=== PATIENT | male | born 1975 | race Caucasian/White ===

== ENCOUNTER 2017-07-11 21:52 | Inpatient (IN) | payer OTHER ==
[2017-07-11 22:50] VITALS: BMI 37.8
--- NOTE | 2017-07-11 22:58 | HP ---
CIWA Score - CIWA Score Nausea/Vomitin Muscle Tremors: 4-Moderate,w/Arms Extend Anxiety: 4-Mod. Anxious/Guarded Agitation: 4-Moderately Restless Paroxysmal Sweats: 3 Orientation: 3-Disoriented Date>2 days Tacttile Disturbances: 3-Moderate Itch/Numb/Burn Auditory Disturbances: 0-None Visual Disturbances: 0-None Headache: 0-None Present CIWA-Ar Total Score: 24 Admission ROS [facility] - HPI Chief Complaint: C/O WITHDRAWAL SX'S. SEEKING DETOX TXMENT Allergies/Adverse Reactions: Allergies Allergy/AdvReac Type Severity Reaction Status Date / Time No Known Allergies Allergy Verified 07/11/17 22:53 History of Present Illness: 42 Y.O. MALE WITH A LONG H/O ALCOHOLISM ADMITTED FOR DETOX TXMENT. CLIENT STATES WAS REFERRED BY [facility] AFTER PRESENTING IN THERE ER FOR INTOXICATION. DENIES RECENT DETOX SERVICES OR SIGNIFICANT CLEAN/ SOBRIETY TIME. Exam Limitations: No Limitations - Ebola screening Have you traveled outside of the country in the last 21 days: No (N) Have you had contact with anyone from an Ebola affected area: No Have you been sick,other than usual withdrawal symptoms: No Do you have a fever: No - Review of Systems Constitutional: Chills, Night Sweats, Changes in sleep EENT: reports: Dental Problems (MISSING TOOTH) Respiratory: reports: No Symptoms reported Cardiac: reports: No Symptoms Reported GI: reports: Diarrhea, Abdominal cramping : reports: No Symptoms Reported Musculoskeletal: reports: Back Pain, Joint Pain, Neck Pain Integumentary: reports: No Symptoms Reported Neuro: reports: Seizure (R/T ETOH WITHDRAWAL) Endocrine: reports: No Symptoms Reported Hematology: reports: No Symptoms Reported Psychiatric: reports: Anxious, Depressed Other Systems: Reviewed and Negative Patient History - Patient Medical History Hx Anemia: No Hx Asthma: No Hx Chronic Obstructive Pulmonary Disease (COPD): No Hx Cancer: No Hx Cardiac Disorders: No Hx Congestive Heart Failure: No Hx Hypertension: Yes (NO MEDS) Hx Hypercholesterolemia: No Hx Pacemaker: No HX Cerebrovascular Accident: No Hx Seizures: Yes (R/T ETOH WITHDRAWAL LAST 5 YEARS AGO) Hx Dementia: No Hx Diabetes: No Hx Gastrointestinal Disorders: No Hx Liver Disease: No Hx Genitourinary Disorders: No Hx Sexually Transmitted Disorders: No Hx Renal Disease (ESRD): No Hx Thyroid Disease: Yes (ACUTE HYPOTHYROIDISM NON COMPLAINT WITH MEDS) Hx Human Immunodeficiency Virus (HIV): No Hx Hepatitis C: No Hx Depression: Yes (NON COMPLIANT W/ MEDS) Hx Suicide Attempt: Yes (LAST 11/2015 PILL OVERDOSE PRESENTLY DENIES) Hx Bipolar Disorder: Yes (NON COMPLAINT W/ MEDS) Hx Schizophrenia: No Other Medical History: PSORIASIS - Patient Surgical History Past Surgical History: No - PPD History Previous Implant?: Yes Documented Results: Negative w/o proof Implanted On Prior [facility] Admission?: No PPD to be Administered?: Yes - Smoking Cessation Smoking history: Former smoker Have you smoked in the past 12 months: No Hx Chewing Tobacco Use: No Initiated information on smoking cessation: No - Substance & Tx. History Hx Alcohol Use: Yes Hx Substance Use: No Substance Use Type: Alcohol Hx Substance Use Treatment: Yes ([facility] - Substances Abused BEER Route: Oral Frequency: Daily Amount used: 24 12 0Z CANS/ 1 GALLON WINE Age of first use: 14 Date of Last Use: 07/11/17 Family Disease History - Family Disease History Family Disease History: Heart Disease: Father ( HTN), CA: Mother ( BREAST CA) Admission Physical Exam [facility] - Vital Signs Vital Signs: Vital Signs - 24 hr 07/11/17 22:49 Temperature 97.6 F Pulse Rate 61 Respiratory 20 Rate Blood Pressure 141/99 - Physical General Appearance: Yes: Appropriately Dressed, Tremorous HEENTM: Yes: EOMI, Normocephalic, Normal Voice, LORENA, Pharynx Normal, Other ( MISSING TEETH) Respiratory: Yes: Chest Non-Tender, Lungs Clear, Normal Breath Sounds, No Respiratory Distress, No Accessory Muscle Use Neck: Yes: No masses,lesions,Nodules, Supple, Trachea in good position Breast: Yes: Breast Exam Deferred Cardiology: Yes: Regular Rhythm, Regular Rate, S1, S2 Abdominal: Yes: Non Tender, Soft, Increased Bowel Sounds, Other (PSORIATIC RASH) Genitourinary: Yes: Within Normal Limits Back: Yes: Normal Inspection Musculoskeletal: Yes: full range of Motion, Gait Steady Extremities: Yes: Normal Range of Motion, Non-Tender, Tremors, Other (RASH TO R FOREARM FROM TAPE) Neurological: Yes: budget and policy analyst II-XII NML intact, Fully Oriented, Alert, Motor Strength 5/5 Integumentary: Yes: Dry, Warm, Rash (PSORIASIS) Lymphatic: Yes: Within Normal Limits - Diagnostic (1) Alcohol dependence with uncomplicated withdrawal Current Visit: Yes Status: Chronic (2) Psoriasis Current Visit: Yes Status: Chronic (3) Hypothyroidism Current Visit: Yes Status: Chronic (4) 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
[2017-07-11] MEDS ORDERED: NICOTINE POLACRILEX 2 MG GUM BUC PRN (23:12)
[2017-07-11] MEDS ORDERED: MAGNESIUM CITRATE 300 ML BOTTLE PO PRN (23:12)
[2017-07-11] MEDS ORDERED: IBUPROFEN 400 MG TABLET (FP) PO PRN (23:12)
[2017-07-11] MEDS ORDERED: ACETAMINOPHEN 325 MG TABLET (FP) PO PRN (23:12)
[2017-07-11] MEDS ORDERED: diphenhydrAMINE HCL 50 MG CAPSULE PO PRN (23:12)
[2017-07-11] MEDS ORDERED: guaiFENesin/D-METHORPHAN HB 10 ML UNIT-DOSE CUPS PO PRN (23:12)
[2017-07-11] MEDS ORDERED: MAG HYDROX/AL HYDROX/SIMETH 30 ML UNIT-DOSE CUP PO PRN (23:12)
[2017-07-11] MEDS ORDERED: chlordiazePOXIDE HCL 25 MG CAPSULE PO PRN (23:12)
[2017-07-11] MEDS ORDERED: hydrOXYzine PAMOATE 50 MG CAPSULE (FP) PO PRN (23:12)
[2017-07-11] MEDS ORDERED: MAGNESIUM HYDROX 2400MG/30ML ORAL SUSPENSION 30 ML CUP PO PRN (23:12)
[2017-07-11] MEDS ORDERED: LOPERAMIDE HCL 2 MG CAPSULE PO PRN (23:12)
[2017-07-11] MEDS ORDERED: P-EPHED 60MG/TRIPROLIDI 2.5MG TABLET PO PRN (23:12)
[2017-07-11] MEDS ORDERED: MENTHOL/PHENOL 1 EACH UD MM PRN (23:12)
[2017-07-12] MEDS: chlordiazePOXIDE HCL 25 MG CAPSULE PO SCH ×4 (00:17→17:35)
[2017-07-12] MEDS ORDERED: PRENATAL VITAMINS W/ FOLIC ACID TABLET (FP) PO SCH (10:00)
[2017-07-12 10:49] LABS: MCH 30.4 pg (25.7-33.7); MCHC 34.3 g/dl (32.0-35.9); MEAN CELL VOLUME 88.6 fl (80-96); MEAN PLT VOLUME 9.3 fl (7.5-11.1); PLATELET COUNT 127 K/MM3 (134-434); RDW 13.6 % (11.9-15.9); WHITE BLOOD COUNT 7.9 K/mm3 (4.0-10.0)
[2017-07-12 11:00] LABS: ALBUMIN 3.5 g/dl (3.4-5.0); ALK PHOS 67 U/L (45-117); ANION GAP 9 (8-16); BILIRUBIN,TOTAL 0.6 mg/dL (0.2-1.0); CALCIUM 8.5 mg/dL (8.5-10.1); CO2 28 mmol/L (21-32); GLUCOSE,RANDOM 93 mg/dL (74-106); SGOT/AST 14 U/L (15-37); SGPT/ALT 38 U/L (12-78); TOT PROT 6.2 g/dl (6.4-8.2)
--- NOTE | 2017-07-12 12:20 | PN ---
S CIWA - CIWA Score Nausea/Vomitin Muscle Tremors: 2 Anxiety: 2 Agitation: 2 Paroxysmal Sweats: 2 Orientation: 0-Oriented Tacttile Disturbances: 2-Mild Itch/Numbness/Burn Auditory Disturbances: 1-Very Mild Visual Disturbances: 1-Very Mild Sensitivity Headache: 1-Very Mild CIWA-Ar Total Score: 16 S Progress Note (SOAP) Subjective: Abdominal discomfort, interrupted sleep, shakes and sweats Objective: 07/12/17 12:19 Vital Signs - 8 hr 07/12/17 07/12/17 06:36 10:54 Temperature 96.3 F L 98.1 F Pulse Rate 68 67 Respiratory 16 20 Rate Blood Pressure 138/84 140/96 Laboratory Last Values WBC 7.9 K/mm3 (4.0-10.0) 07/12/17 08:00 RBC 5.21 M/mm3 (4.00-5.60) 07/12/17 08:00 Hgb 15.8 GM/dL (11.7-16.9) 07/12/17 08:00 Hct 46.2 % (35.4-49) 07/12/17 08:00 MCV 88.6 fl (80-96) 07/12/17 08:00 MCH 30.4 pg (25.7-33.7) 07/12/17 08:00 MCHC 34.3 g/dl (32.0-35.9) 07/12/17 08:00 RDW 13.6 % (11.9-15.9) 07/12/17 08:00 Plt Count 127 K/MM3 (134-434) L 07/12/17 08:00 MPV 9.3 fl (7.5-11.1) 07/12/17 08:00 Sodium 144 mmol/L (136-145) 07/12/17 08:00 Potassium 3.8 mmol/L (3.5-5.1) 07/12/17 08:00 Chloride 107 mmol/L (98-107) 07/12/17 08:00 Carbon Dioxide 28 mmol/L (21-32) 07/12/17 08:00 Anion Gap 9 (8-16) 07/12/17 08:00 BUN 14 mg/dL (7-18) 07/12/17 08:00 Creatinine 1.0 mg/dL (0.7-1.3) 07/12/17 08:00 Creat Clearance w eGFR > 60 (>60) 07/12/17 08:00 Random Glucose 93 mg/dL (74-106) 07/12/17 08:00 Calcium 8.5 mg/dL (8.5-10.1) 07/12/17 08:00 Total Bilirubin 0.6 mg/dL (0.2-1.0) 07/12/17 08:00 AST 14 U/L (15-37) L 07/12/17 08:00 ALT 38 U/L (12-78) 07/12/17 08:00 Alkaline Phosphatase 67 U/L (45-117) 07/12/17 08:00 Total Protein 6.2 g/dl (6.4-8.2) L 07/12/17 08:00 Albumin 3.5 g/dl (3.4-5.0) 07/12/17 08:00 labs noted Assessment: 07/12/17 12:19 withdrawal sx Plan: continue detox
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
[2017-07-12] MEDS ORDERED: LITHIUM CARBONATE 150 MG CAPSULE PO SCH (13:15)
[2017-07-12 17:37] LABS: URINE APPEARANCE CLEAR; URINE BILIRUBIN NEGATIVE (NEGATIVE); URINE BLOOD NEGATIVE (NEGATIVE); URINE COLOR STRAW; URINE GLUCOSE (UA) NEGATIVE (NEGATIVE); URINE KETONE NEGATIVE (NEGATIVE); URINE LEUK ESTERASE NEGATIVE (NEGATIVE); URINE NITRITE NEGATIVE (NEGATIVE); URINE PROTEIN NEGATIVE (NEGATIVE); URINE UROBILINOGEN NEGATIVE mg/dL (0.2-1.0)
[2017-07-12 18:39] VITALS: BP 125/73; PULSE 62; TEMP 97.9
--- NOTE | 2017-07-12 19:50 | DS ---
[facility] Detox Discharge Summary Admission Date: 07/11/17 Discharge Date: 07/12/17 - History Present History: Alcohol Dependence Pertinent Past History: HTN, Hypothyroidism, seizure disorder - Physical Exam Results Vital Signs: Vital Signs Temperature 97.9 F 07/12/17 18:38 Pulse Rate 62 07/12/17 18:38 Respiratory Rate 20 07/12/17 18:38 Blood Pressure 125/73 07/12/17 18:38 O2 Sat by Pulse Oximetry (%) Pertinent Admission Physical Exam Findings: withdrawal sx Laboratory Last Values WBC 7.9 K/mm3 (4.0-10.0) 07/12/17 08:00 RBC 5.21 M/mm3 (4.00-5.60) 07/12/17 08:00 Hgb 15.8 GM/dL (11.7-16.9) 07/12/17 08:00 Hct 46.2 % (35.4-49) 07/12/17 08:00 MCV 88.6 fl (80-96) 07/12/17 08:00 MCH 30.4 pg (25.7-33.7) 07/12/17 08:00 MCHC 34.3 g/dl (32.0-35.9) 07/12/17 08:00 RDW 13.6 % (11.9-15.9) 07/12/17 08:00 Plt Count 127 K/MM3 (134-434) L 07/12/17 08:00 MPV 9.3 fl (7.5-11.1) 07/12/17 08:00 Sodium 144 mmol/L (136-145) 07/12/17 08:00 Potassium 3.8 mmol/L (3.5-5.1) 07/12/17 08:00 Chloride 107 mmol/L (98-107) 07/12/17 08:00 Carbon Dioxide 28 mmol/L (21-32) 07/12/17 08:00 Anion Gap 9 (8-16) 07/12/17 08:00 BUN 14 mg/dL (7-18) 07/12/17 08:00 Creatinine 1.0 mg/dL (0.7-1.3) 07/12/17 08:00 Creat Clearance w eGFR > 60 (>60) 07/12/17 08:00 Random Glucose 93 mg/dL (74-106) 07/12/17 08:00 Calcium 8.5 mg/dL (8.5-10.1) 07/12/17 08:00 Total Bilirubin 0.6 mg/dL (0.2-1.0) 07/12/17 08:00 AST 14 U/L (15-37) L 07/12/17 08:00 ALT 38 U/L (12-78) 07/12/17 08:00 Alkaline Phosphatase 67 U/L (45-117) 07/12/17 08:00 Total Protein 6.2 g/dl (6.4-8.2) L 07/12/17 08:00 Albumin 3.5 g/dl (3.4-5.0) 07/12/17 08:00 Urine Color Straw 07/12/17 17:20 Urine Appearance Clear 07/12/17 17:20 Urine pH 7.0 (5.0-8.0) 07/12/17 17:20 Urine Protein Negative (NEGATIVE) 07/12/17 17:20 Urine Glucose (UA) Negative (NEGATIVE) 07/12/17 17:20 Urine Ketones Negative (NEGATIVE) 07/12/17 17:20 Urine Blood Negative (NEGATIVE) 07/12/17 17:20 Urine Nitrite Negative (NEGATIVE) 07/12/17 17:20 Urine Bilirubin Negative (NEGATIVE) 07/12/17 17:20 Urine Urobilinogen Negative mg/dL (0.2-1.0) 07/12/17 17:20 RPR Titer Nonreactive (NONREACTIVE) 07/12/17 08:00 labs noted - Medication Discharge Medications: Ambulatory Orders Lisinopril [Prinivil] 5 mg PO DAILY 07/11/17 Halesite Carbonate [Eskalith -] 150 mg PO BID 07/11/17 Halesite Carbonate [Eskalith -] 150 mg PO BID #60 capsule 07/12/17 - Diagnosis (1) Bipolar II disorder Status: Acute (2) Alcohol dependence with uncomplicated withdrawal Status: Acute (3) HTN (hypertension) Status: Chronic Qualifiers: Hypertension type: essential hypertension Qualified Code(s): I10 - Essential (primary) hypertension (4) Hypothyroidism Status: Chronic Qualifiers: Hypothyroidism type: acquired Qualified Code(s): E03.9 - Hypothyroidism, unspecified (5) Seizure due to alcohol withdrawal Status: Chronic Qualifiers: Complication of substance-induced condition: uncomplicated Qualified Code(s): F10.230 - Alcohol dependence with withdrawal, uncomplicated - AMA Did Patient Leave Against Medical Advice: Yes
[2017-07-12] MEDS ORDERED: THIAMINE HCL 100 MG TABLET (FP) PO SCH (22:00)
[2017-07-12] MEDS ORDERED: chlordiazePOXIDE HCL 25 MG CAPSULE PO SCH (23:00)
[2017-07-13] MEDS ORDERED: chlordiazePOXIDE 5 MG CAPSULE PO SCH (23:00)
--- NOTE | 2017-07-14 17:02 | EKG ---
Test Reason : Blood Pressure : / mmHG Vent. Rate : 067 BPM Atrial Rate : 067 BPM P-R Int : 168 ms QRS Dur : 116 ms QT Int : 442 ms P-R-T Axes : 047 005 004 degrees QTc Int : 467 ms NORMAL SINUS RHYTHM INCOMPLETE RIGHT BUNDLE BRANCH BLOCK BORDERLINE ECG NO PREVIOUS ECGS AVAILABLE Confirmed by YOCASTA SAMSON MD ([id number]) on 07/14/2017 5:02:16 PM Referred By: Confirmed By:YOCASTA SAMSON MD
[2017-07-14] MEDS ORDERED: chlordiazePOXIDE HCL 10 MG CAPSULE PO SCH (23:00)
== END 2017-07-12 19:00 | disposition left against medical advice (07) | DRG 770 ==
LOC: YASAS 21:52 → Y6N 23:26
PROVIDERS: ADMIT Internal Medicine; ATTEND Internal Medicine
PROC: HZ2ZZZZ Detoxification Services for Substance Abuse Treatment (ICD-10-PCS; principal; 2017-07-11)
DX: F10.230 Alcohol dependence with withdrawal, uncomplicated (principal); G40.509 Epileptic seizures related to external causes, not intractable, without status epilepticus; I10 Essential (primary) hypertension; E03.9 Hypothyroidism, unspecified; L40.9 Psoriasis, unspecified; Z76.0 Encounter for issue of repeat prescription
CPT/HCPCS: 36415; 80053; 81003; 85027; 86593; 93005; 93010